=== PATIENT | male | born 1965 | race Caucasian/White ===

== ENCOUNTER 2022-05-03 23:46 | Inpatient (IN) | payer BC ==
[~2022-05-03] VITALS: Ht 180.3 cm; Wt 74.8 kg
[~2022-05-03 23:46] MED LIST: NAPROXEN500 MG; VICODIN 5-5001 EACH
[2022-05-04] MEDS ORDERED: DEXAMETHASONE SOD PHOS 10 MG/1 ML VIAL IV ONE (00:15)
[2022-05-04] MEDS ORDERED: ACETAMINOPHEN 325 MG TAB PO PRN (00:15)
[2022-05-04 00:18] LABS: BASOPHILS # (AUTO) 0.1 (0.0-0.1); BASOPHILS % 0.3 % (0.0-1.0); EOSINOPHILS % 0.1 % (0.0-6.0); HEMATOCRIT 39.4 % (38.2-49.6); HEMOGLOBIN 13.1 g/dL (14.0-18.0); LYMPHOCYTES # (AUTO) 1.1 (1.0-3.2); LYMPHOCYTES % 4.6 % (18.0-39.1); MEAN CORPUSCULAR HEMOGLOBIN 30.7 pg (28-32); MEAN CORPUSCULAR HGB CONC 33.2 g/dL (31-35); MEAN CORPUSCULAR VOLUME 92.3 fL (81-99); MONOCYTES # (AUTO) 1.6 (0.2-0.8); MONOCYTES % 6.6 % (4.4-11.3); NEUTROPHILS # (AUTO) 19.7 (2.1-6.9); NEUTROPHILS % 83.3 % (38.7-80.0); PLATELET COUNT 243 x10e3/uL (140-360); RED BLOOD COUNT 4.27 x10e6/uL (4.3-5.7)
[2022-05-04 00:31] LABS: INR 0.95; PROTHROMBIN TIME 13.6 seconds (11.9-14.5)
[2022-05-04 00:36] LABS: ALBUMIN 2.6 g/dL (3.5-5.0); ALBUMIN/GLOBULIN RATIO 0.8 (0.8-2.0); ANION GAP 12.7 mmol/L (8-16); CALCIUM 8.6 mg/dL (8.4-10.2); CREATININE, SERUM 1.18 mg/dL (0.72-1.25); POTASSIUM 3.7 mmol/L (3.5-5.1)
[2022-05-04] MEDS ORDERED: IOPAMIDOL 370 MG/ML 100 ML INFUS..BTL INJ ONE (04:35)
[2022-05-04 08:04] LABS: BASOPHILS # (AUTO) 0.1 (0.0-0.1); BASOPHILS % 0.4 % (0.0-1.0); HEMATOCRIT 38.8 % (38.2-49.6); HEMOGLOBIN 12.9 g/dL (14.0-18.0); LYMPHOCYTES # (AUTO) 0.8 (1.0-3.2); LYMPHOCYTES % 3.3 % (18.0-39.1); MEAN CORPUSCULAR HEMOGLOBIN 30.6 pg (28-32); MEAN CORPUSCULAR HGB CONC 33.2 g/dL (31-35); MEAN CORPUSCULAR VOLUME 92.2 fL (81-99); MONOCYTES # (AUTO) 0.8 (0.2-0.8); MONOCYTES % 3.6 % (4.4-11.3); NEUTROPHILS # (AUTO) 19.9 (2.1-6.9); NEUTROPHILS % 86.9 % (38.7-80.0); PLATELET COUNT 236 x10e3/uL (140-360); RED BLOOD COUNT 4.21 x10e6/uL (4.3-5.7)
[2022-05-04 08:23] LABS: ALBUMIN 2.5 g/dL (3.5-5.0); ALBUMIN/GLOBULIN RATIO 0.7 (0.8-2.0); ANION GAP 13.4 mmol/L (8-16); CALCIUM 8.3 mg/dL (8.4-10.2); CREATININE, SERUM 1.09 mg/dL (0.72-1.25); POTASSIUM 4.4 mmol/L (3.5-5.1)
[2022-05-04] MEDS ORDERED: ALBUTEROL/IPRATROPIUM 3 ML NEB NEB PRN (09:15)
[2022-05-04] MEDS ORDERED: ONDANSETRON HCL INJ 2MG/ML 2ML 2 MG/ML VIAL IV PRN (09:15)
[2022-05-04] MEDS ORDERED: BENZONATATE 100 MG CAP PO PRN (09:15)
[2022-05-04] MEDS: Doxycycline IV 100 MG in SODIUM CHLORIDE 0.9% 100 ML IV SCH ×2 (09:53→20:47)
[2022-05-04] MEDS: CHOLECALCIFEROL 1,000 UNIT TAB PO SCH (09:53)
[2022-05-04] MEDS: NICOTINE 21 MG/EA PATCH TOP SCH (09:58)
[2022-05-04] MEDS: ALBUTEROL/IPRATROPIUM 3 ML NEB NEB SCH ×2 (10:55→19:00)
[2022-05-04 13:24] VITALS: BP 126/67
[2022-05-04 13:25] VITALS: BP 126/67
[2022-05-04 13:30] VITALS: BP 126/67
[2022-05-04] MEDS ORDERED: SODIUM CHLORIDE 0.9% 250ML 250 ML ONE (14:36)
[2022-05-04] MEDS: BENZONATATE 100 MG CAP PO SCH ×2 (14:36→20:46)
[2022-05-04] MEDS: ENOXAPARIN SOD INJ 40 MG/0.4 ML SYR SC SCH (16:08)
[2022-05-04] MEDS: ASCORBIC ACID 500 MG TAB PO SCH (16:08)
[2022-05-04 16:45] VITALS: BP 139/71
[2022-05-04 20:00] VITALS: BP 137/72
[2022-05-04 21:00] VITALS: BP 137/72
[2022-05-05] VITALS (7 sets, daily range): BP systolic 122–136; BP diastolic 63–76
[2022-05-05] MEDS: ALBUTEROL/IPRATROPIUM 3 ML NEB NEB SCH ×4 (01:00→19:00)
[2022-05-05 05:01] LABS: BASOPHILS # (AUTO) 0.1 (0.0-0.1); BASOPHILS % 0.5 % (0.0-1.0); EOSINOPHILS # (AUTO) 0.1 (0.0-0.4); EOSINOPHILS % 0.5 % (0.0-6.0); HEMATOCRIT 35.4 % (38.2-49.6); HEMOGLOBIN 12.1 g/dL (14.0-18.0); LYMPHOCYTES # (AUTO) 1.7 (1.0-3.2); LYMPHOCYTES % 8.6 % (18.0-39.1); MEAN CORPUSCULAR HEMOGLOBIN 30.8 pg (28-32); MEAN CORPUSCULAR HGB CONC 34.2 g/dL (31-35); MEAN CORPUSCULAR VOLUME 90.1 fL (81-99); MONOCYTES # (AUTO) 1.3 (0.2-0.8); MONOCYTES % 6.4 % (4.4-11.3); PLATELET COUNT 233 x10e3/uL (140-360); RED BLOOD COUNT 3.93 x10e6/uL (4.3-5.7); RED CELL DISTRIBUTION WIDTH 12.9 % (11.7-14.4)
[2022-05-05 05:19] LABS: ANION GAP 11.8 mmol/L (8-16); CALCIUM 8.2 mg/dL (8.4-10.2); CREATININE, SERUM 0.99 mg/dL (0.72-1.25); POTASSIUM 3.8 mmol/L (3.5-5.1)
[2022-05-05 06:58] LABS: BAND NEUTROPHILS % (MANUAL) 3 %; EOSINOPHILS % (MANUAL) 2 % (0-7); LYMPHOCYTES % (MANUAL) 3 % (19-48); METAMYELOCYTES % (MANUAL) 5 % (0-0); MONOCYTES % (MANUAL) 5 % (3.4-9.0); NEUTROPHILS % (MANUAL) 82 % (40-74)
[2022-05-05 06:59] LABS: PLATELET ESTIMATE ADEQUATE; PLATELET MORPHOLOGY COMMENT NORMAL
[2022-05-05] MEDS: Doxycycline IV 100 MG in SODIUM CHLORIDE 0.9% 100 ML IV SCH ×2 (10:05→20:52)
[2022-05-05] MEDS: NICOTINE 21 MG/EA PATCH TOP SCH (10:08)
[2022-05-05] MEDS: BENZONATATE 100 MG CAP PO SCH ×3 (10:09→20:52)
[2022-05-05] MEDS: CHOLECALCIFEROL 1,000 UNIT TAB PO SCH (10:09)
[2022-05-05] MEDS: DEXAMETHASONE SOD PHOS 10 MG/1 ML VIAL IV SCH (10:09)
[2022-05-05] MEDS: ASCORBIC ACID 500 MG TAB PO SCH ×2 (10:10→16:53)
[2022-05-05] MEDS: ENOXAPARIN SOD INJ 40 MG/0.4 ML SYR SC SCH (16:53)
[2022-05-06] VITALS (9 sets, daily range): BP systolic 112–139; BP diastolic 55–80
[2022-05-06] MEDS: ALBUTEROL/IPRATROPIUM 3 ML NEB NEB SCH ×4 (01:00→19:05)
[2022-05-06] MEDS: DEXAMETHASONE SOD PHOS 10 MG/1 ML VIAL IV SCH (09:28)
[2022-05-06] MEDS: BENZONATATE 100 MG CAP PO SCH ×3 (09:28→20:37)
[2022-05-06] MEDS: CHOLECALCIFEROL 1,000 UNIT TAB PO SCH (09:29)
[2022-05-06] MEDS: NICOTINE 21 MG/EA PATCH TOP SCH (09:29)
[2022-05-06] MEDS: Doxycycline IV 100 MG in SODIUM CHLORIDE 0.9% 100 ML IV SCH ×2 (09:29→21:24)
[2022-05-06] MEDS: ASCORBIC ACID 500 MG TAB PO SCH ×2 (09:29→16:06)
[2022-05-06] MEDS: ENOXAPARIN SOD INJ 40 MG/0.4 ML SYR SC SCH (17:00)
[2022-05-07] VITALS (7 sets, daily range): BP systolic 111–127; BP diastolic 62–75
[2022-05-07] MEDS: ALBUTEROL/IPRATROPIUM 3 ML NEB NEB SCH ×4 (01:00→19:10)
[2022-05-07 05:37] LABS: BASOPHILS # (AUTO) 0.1 (0.0-0.1); BASOPHILS % 0.6 % (0.0-1.0); EOSINOPHILS # (AUTO) 0.1 (0.0-0.4); EOSINOPHILS % 0.2 % (0.0-6.0); HEMATOCRIT 38.5 % (38.2-49.6); HEMOGLOBIN 12.9 g/dL (14.0-18.0); LYMPHOCYTES % 9.6 % (18.0-39.1); MEAN CORPUSCULAR HEMOGLOBIN 30.8 pg (28-32); MEAN CORPUSCULAR HGB CONC 33.5 g/dL (31-35); MEAN CORPUSCULAR VOLUME 91.9 fL (81-99); MONOCYTES # (AUTO) 1.2 (0.2-0.8); NEUTROPHILS % 74.1 % (38.7-80.0); PLATELET COUNT 283 x10e3/uL (140-360); RED BLOOD COUNT 4.19 x10e6/uL (4.3-5.7)
[2022-05-07 05:53] LABS: ANION GAP 13.4 mmol/L (8-16); CALCIUM 8.9 mg/dL (8.4-10.2); CREATININE, SERUM 0.9 mg/dL (0.72-1.25); POTASSIUM 4.4 mmol/L (3.5-5.1)
[2022-05-07 06:08] LABS: BAND NEUTROPHILS % (MANUAL) 1 %; LYMPHOCYTES % (MANUAL) 7 % (19-48); MONOCYTES % (MANUAL) 8 % (3.4-9.0); NEUTROPHILS % (MANUAL) 84 % (40-74)
[2022-05-07 06:10] LABS: PLATELET MORPHOLOGY COMMENT FEW LARGE; RBC MORPHOLOGY COMMENT NORMAL
[2022-05-07] MEDS: Doxycycline IV 100 MG in SODIUM CHLORIDE 0.9% 100 ML IV SCH ×2 (10:46→22:07)
[2022-05-07] MEDS: CHOLECALCIFEROL 1,000 UNIT TAB PO SCH (10:46)
[2022-05-07] MEDS: DEXAMETHASONE 4 MG TAB PO SCH (10:46)
[2022-05-07] MEDS: NICOTINE 21 MG/EA PATCH TOP SCH (10:46)
[2022-05-07] MEDS: ASCORBIC ACID 500 MG TAB PO SCH ×2 (10:46→17:00)
[2022-05-07] MEDS: BENZONATATE 100 MG CAP PO SCH ×3 (10:47→22:06)
[2022-05-07] MEDS: ENOXAPARIN SOD INJ 40 MG/0.4 ML SYR SC SCH (17:00)
[2022-05-08] VITALS: BP 146/88
[2022-05-08] MEDS: ALBUTEROL/IPRATROPIUM 3 ML NEB NEB SCH ×3 (01:00→13:00)
[2022-05-08 05:29] LABS: BASOPHILS # (AUTO) 0.1 (0.0-0.1); BASOPHILS % 0.5 % (0.0-1.0); EOSINOPHILS # (AUTO) 0.1 (0.0-0.4); EOSINOPHILS % 0.4 % (0.0-6.0); HEMATOCRIT 37.4 % (38.2-49.6); HEMOGLOBIN 12.7 g/dL (14.0-18.0); LYMPHOCYTES # (AUTO) 2.1 (1.0-3.2); LYMPHOCYTES % 11.8 % (18.0-39.1); MEAN CORPUSCULAR VOLUME 91.2 fL (81-99); MONOCYTES # (AUTO) 1.3 (0.2-0.8); MONOCYTES % 7.3 % (4.4-11.3); NEUTROPHILS # (AUTO) 12.7 (2.1-6.9); PLATELET COUNT 231 x10e3/uL (140-360)
[2022-05-08 05:59] LABS: ANION GAP 12.2 mmol/L (8-16); CALCIUM 8.5 mg/dL (8.4-10.2); CREATININE, SERUM 0.86 mg/dL (0.72-1.25); POTASSIUM 4.2 mmol/L (3.5-5.1)
[2022-05-08 08:00] VITALS: BP 146/88
[2022-05-08] MEDS: CHOLECALCIFEROL 1,000 UNIT TAB PO SCH (08:01)
[2022-05-08] MEDS: Doxycycline IV 100 MG in SODIUM CHLORIDE 0.9% 100 ML IV SCH (08:01)
[2022-05-08] MEDS: NICOTINE 21 MG/EA PATCH TOP SCH (08:01)
[2022-05-08] MEDS: DEXAMETHASONE 4 MG TAB PO SCH (08:01)
[2022-05-08] MEDS: ASCORBIC ACID 500 MG TAB PO SCH ×2 (08:01→15:59)
[2022-05-08] MEDS: BENZONATATE 100 MG CAP PO SCH ×2 (08:01→15:59)
[2022-05-08 08:03] VITALS: BP 130/59
[2022-05-08] MEDS ORDERED: SODIUM CHLORIDE 0.9% 250ML 250 ML ONE (08:18)
[2022-05-08 09:05] LABS: EOSINOPHILS % (MANUAL) 1 % (0-7); LYMPHOCYTES % (MANUAL) 8 % (19-48); METAMYELOCYTES % (MANUAL) 1 % (0-0); MONOCYTES % (MANUAL) 6 % (3.4-9.0); MYELOCYTES % (MANUAL) 3 % (0-0); NEUTROPHILS % (MANUAL) 81 % (40-74)
[2022-05-08 09:06] LABS: PLATELET ESTIMATE ADEQUATE; PLATELET MORPHOLOGY COMMENT FEW LARGE
[2022-05-08 09:07] LABS: RBC MORPHOLOGY COMMENT NORMAL
[2022-05-08 11:33] VITALS: BP 107/83
[2022-05-08] MEDS: ENOXAPARIN SOD INJ 40 MG/0.4 ML SYR SC SCH (15:59)
[2022-05-08] MEDS ORDERED: ELIQUIS2.5 MG PO (17:17)
[2022-05-08] MEDS ORDERED: AUGMENTIN 500-1 EACH PO (17:17)
[2022-05-08] MEDS ORDERED: PROAIR HFA INH8.5 GM NEB (17:19)
[2022-05-08] MEDS ORDERED: VITAMIN C500 MG PO (17:20)
[2022-05-08] MEDS ORDERED: VITAMIN C1000 MG PO (17:20)
[2022-05-08] MEDS ORDERED: ASCORBIC ACID500 M2 PO (17:20)
[2022-05-08] MEDS ORDERED: BENZONATATE100 MG PO (17:21)
[2022-05-08] MEDS ORDERED: MEDROL4 MG PO (17:22)
[2022-05-08] MEDS ORDERED: VITAMIN D31 GM (17:24)
[2022-05-08] MEDS ORDERED: ONDANSETRON HCL 4 MG ORAL DISINTEGRATING TAB PO PRN (17:30)
[2022-05-08] MEDS ORDERED: DOXYCYCLINE HYCLATE TABLET 100 MG TAB PO SCH (20:00)
== END 2022-05-08 18:20 | disposition home or self-care (01) | DRG 177 ==
LOC: ER 23:53 → ERHOLD 05-04 00:48 → MED/SURG2 05-04 13:03
PROVIDERS: ADMIT Internal Medicine; ATTEND Internal Medicine
PROC: 3E0333Z Introduction of Anti-inflammatory into Peripheral Vein, Percutaneous Approach (ICD-10-PCS; principal; 2022-05-04)
DX: U07.1 COVID-19 (principal); J12.82 Pneumonia due to coronavirus disease 2019; J96.01 Acute respiratory failure with hypoxia; J15.9 Unspecified bacterial pneumonia; J44.1 Chronic obstructive pulmonary disease with (acute) exacerbation; R73.9 Hyperglycemia, unspecified; F17.218 Nicotine dependence, cigarettes, with other nicotine-induced disorders; Z28.310 Unvaccinated for COVID-19; N28.9 Disorder of kidney and ureter, unspecified; M54.9 Dorsalgia, unspecified
CPT/HCPCS: 36415; 71045; 71046; 71260; 80048; 80053; 83880; 84484; 85025; 85610; 87040; 93005; 94640; 94799; 99284; J1100; J1650; J2543; J7050; Q9967